=== PATIENT | female | born 1985 | race Caucasian/White ===

== ENCOUNTER 2017-10-21 12:15 | Emergency (ER) | payer OTHER, MEDICAID ==
[~2017-10-21] VITALS: Ht 177.8 cm; Wt 124.0 kg
[~2017-10-21 12:15] MED LIST: MELO15TA2 PO; PENI500T PO
[2017-10-21 12:36] VITALS: BP 143/81; PULSE 100; RESP 16; TEMP 98.1; O2SAT 95
== END 2017-10-21 13:13 | disposition left against medical advice (07) ==
LOC: PHED 12:15
DX: M54.9 Dorsalgia, unspecified (principal)
CPT/HCPCS: 99281